=== PATIENT | female | born 1990 | race Caucasian/White ===

== ENCOUNTER 2016-08-01 08:26 | Emergency (ER) | payer OTHER ==
[~2016-08-01] VITALS: Ht 157.5 cm; Wt 89.5 kg
[2016-08-01 10:46] VITALS: BP 118/64
== END 2016-08-01 10:45 | disposition home or self-care (01) ==
LOC: ED 08:26
DX: H66.93 Otitis media, unspecified, bilateral (principal); H10.9 Unspecified conjunctivitis; E66.9 Obesity, unspecified